=== PATIENT | female | born 1985 | race Caucasian/White ===

== ENCOUNTER → 2018-06-24 08:30 | Outpatient (CLI) | payer OTHER, SELFPAY ==
--- NOTE | 2018-06-24 | DI.US.S_ITS ---
PROCEDURE: US ABDOMEN COMPLETE INDICATIONS: ABDOMINAL PAIN TECHNIQUE: Real-time scanning was performed of the abdominal and retroperitoneal organs, with image documentation. COMPARISON: [facility], CT, ABDOMEN/PELVIS WITH CONTRAST, 08/17/2017, 15:21. [facility], CR, ABDOMEN ACUTE SERIES, 08/17/2017, 12:38. [facility], RG, US ABDOMEN LIMITED, 10/01/2016, 11:04. FINDINGS: Liver: Liver is normal in size and homogeneous in echotexture. Gallbladder: No gallstones identified. Normal gallbladder wall. No pericholecystic fluid. Negative sonographic Zamora sign. Biliary ducts: Intrahepatic bile ducts are non-dilated. Extrahepatic bile duct caliber measures 5.0 mm. Normal is 6-7 mm or less in diameter, or 10 mm or less post-cholecystectomy. Pancreas: Visualized portions of the pancreas are sonographically normal. Spleen: Spleen is normal in size and homogeneous in echotexture. Kidneys: Kidneys are normal in size and echotexture. Right kidney measures 9.8 cm long; left kidney measures 10 point cm long. No hydronephrosis or nephrolithiasis. No solid masses. Aorta: Visualized aorta is normal in caliber at less than 3 cm. Iliacs: Proximal common iliac arteries are normal in caliber at less than 2.5 cm. IVC: Intrahepatic inferior vena cava is patent. Miscellaneous: No free abdominal fluid. IMPRESSION: No source for abdominal pain identified. Dictated by: Fred HALL Interpreted: Nathan Suresh MD on 06/24/2018 at 10:19 Approved by: Nathan Suresh M.D. on 06/24/2018 at 10:45
== END ==
PROVIDERS: Family Provider Internal Medicine; PCP Internal Medicine; Visit Provider Physician Assistant Medical
DX: R10.9 Unspecified abdominal pain (principal)
CPT/HCPCS: 76700

== ENCOUNTER → 2018-06-30 13:11 | Outpatient (CLI) | payer OTHER, SELFPAY ==
[2018-06-30 14:42] LABS: Thyroid Stimulating Hormone 1.66 uIU/mL (0.47-4.68)
== END ==
PROVIDERS: PCP Internal Medicine; Visit Provider Allergy & Immunology
DX: E03.9 Hypothyroidism, unspecified (principal)
CPT/HCPCS: 36415; 84443

== ENCOUNTER 2018-07-08 00:53 | Emergency (ER) | payer OTHER, SELFPAY ==
[2018-07-08 01:20] VITALS: BP 136/87; PULSE 80; RESP 18; TEMP 37.3; O2SAT 98; BMI 23.0
--- NOTE | 2018-07-08 01:44 | DI.CT.S_ITS ---
PROCEDURE: CT ABDOMEN PELVIS W CON INDICATIONS: severe left lower quadrant pain TECHNIQUE: After the administration of intravenous contrast, 5 mm thick sections acquired from the diaphragm to the symphysis. 5 mm coronal and sagittal reformats were acquired. For radiation dose reduction, the following was used: automated exposure control, adjustment of mA and/or kV according to patient size. COMPARISON: Located Within [facility], CT, ABDOMEN/PELVIS WITH CONTRAST, 08/17/2017, 15:21. FINDINGS: Image quality: Excellent. ABDOMEN: Lung bases: Lung bases are clear. Heart size is normal. Solid organs: Liver is normal in size and enhancement. Probable hemangioma in the periphery of the posterior-superior subsegment of the right lobe liver is stable compared to the prior examination. Gallbladder is normal. Biliary system is non dilated. Pancreas enhances normally. Spleen is normal in size and enhancement. No adrenal nodules. Kidneys demonstrate normal size and enhancement, without hydronephrosis. Peritoneum and bowel: Bowel loops demonstrate normal wall thickness and caliber. The appendix is normal. No free fluid or air. Nodes and vessels: No retroperitoneal or mesenteric adenopathy by size criteria. Aorta and inferior vena cava are normal in size. Miscellaneous: No ventral hernias. PELVIS: Genitourinary: Bladder wall thickness is normal. Intrauterine device is properly positioned. Essure device in the right fallopian tube is stable. Previously identified right adnexal cyst has resolved. Miscellaneous: No inguinal hernias or adenopathy. Bones: No suspicious bony lesions. No vertebral body compression fractures. IMPRESSION: 1. No acute disease process. 2. No free free air. Trace free fluid in the pelvis which is within physiologic limits. 3. No dilated loops of bowel. Dictated by: Trinidad Garcia MD, PhD on 07/08/2018 at 7:07 Approved by: Trinidad Garcia MD, PhD on 07/08/2018 at 7:13
--- NOTE | 2018-07-08 01:59 | ED_ITS ---
HPI - Abdominal Pain General Chief Complaint: Abdominal Pain Stated Complaint: lower left abdominal pain, nausea, diarrhea Time Seen by Provider: 07/08/18 01:08 Source: patient and family Mode of arrival: ambulatory Limitations: no limitations History of Present Illness HPI narrative: 33F non smoker with extensive GI history presents with severe LLQ pain over the night. Patient has extensive GI history including gastroparesis and irritable bowel syndrome. Her symptoms began tonight became quite severe while taking a bowel movement, and she states palpation and motion also make it worse. She is nauseated but denies vomiting. She has had no fever or chills. She is not dizzy nor weak or lightheaded. She states this is drastically different than any of her IBS or ovarian pain. MD complaint: abdominal pain Onset (ago): hour(s) Pain Consistency: constant Location: LLQ Severity: severe Quality: cramping and stabbing Radiation: none Migration to: no migration Relieving factors: rest Exacerbating factors: movement Related Data Home Medications Medication Instructions Recorded Confirmed fluticasone-salmeterol [Advair 1 puff INH BID #14 dose 11/07/12 Diskus] [DOMPARADONE] 10 mg PO AC #0 12/27/15 amitriptyline 50 mg PO HS #0 tab 12/27/15 escitalopram oxalate [Lexapro] 20 mg PO QDAY #0 12/27/15 hyoscyamine sulfate [Levbid] 0.375 mg PO TIDAC #0 12/27/15 ibuprofen 200 mg PO PRN PRN #0 12/27/15 ranitidine HCl [Zantac] 150 mg PO TIDAC #0 12/27/15 spironolactone [Aldactone] 100 mg PO BID #0 12/27/15 topiramate [Topamax] 200 mg PO HS #0 12/27/15 zolpidem 5 mg PO QDAY #0 12/27/15 levonorgestrel [Mirena] 52 mg INTRAU #0 06/10/17 Previous Rx's Medication Instructions Recorded naproxen [Naprosyn] 500 mg PO BIDP PRN #20 tab 08/17/17 oxycodone 5 mg PO Q4-6H PRN #10 tab 07/08/18 Allergies Allergy/AdvReac Type Severity Reaction Status Date / Time No Known Allergies Allergy Uncoded 09/15/17 12:24 Review of Systems Constitutional Denies chills, Denies fever(s), Denies lethargy and Denies weakness Eyes Denies change in vision, Denies eye discharge, Denies irritation and Denies loss of vision ENT Ears, Nose, Mouth, and Throat: Denies change in voice, Denies neck pain and Denies sore throat Cardiovascular Denies chest pain, Denies irregular heart rhythm, Denies lightheadedness, Denies palpitations, Denies dyspnea, Denies dyspnea on exertion and Denies orthopnea Respiratory Denies cough, Denies dyspnea, Denies dyspnea on exertion and Denies wheezing Gastrointestinal Gastrointestinal: Reports abdominal pain, Denies change in bowel habits, Reports diarrhea, Denies nausea and Denies vomiting Genitourinary Denies hematuria, Denies flank pain, Denies urinary incontinence and Denies urinary urgency Musculoskeletal Denies neck pain Integumentary/Breasts Denies pruritus, Denies erythema, Denies rash and Denies wounds Neurologic Denies confusion, Denies loss of vision and Denies weakness Psychiatric Denies anxiety, Denies confusion, Denies depression, Denies homicidal ideation and Denies suicidal ideation Endocrine Denies palpitations Hematologic/Lymphatic Denies easy bruising Allergic/Immunologic Denies wheezing PFSH Social History Smoking Status: Never smoker Social History Smoking Status: Never smoker Exam Narrative Exam Narrative: GENERAL: T pleasant 33-year-old female with her father, obviously quite uncomfortable and in pain HEAD: Atraumatic. Normocephalic. No temporal or scalp tenderness. EYES: Pupils equal round and reactive. Extraocular motions intact. No scleral icterus. No injection or drainage. ENT: Nose without bleeding, purulent drainage or septal hematoma. Throat without erythema, tonsillar hypertrophy or exudate. Uvula midline. Airway patent. NECK: Trachea midline. No JVD or lymphadenopathy. Supple, nontender, no meningeal signs. CARDIOVASCULAR: Regular rate and rhythm without murmurs, gallops, or rubs. RESPIRATORY: Clear to auscultation. Breath sounds equal bilaterally. No wheezes , rales, or rhonchi. GASTROINTESTINAL: Abdomen soft, severe left lower quadrant tenderness, nondistended. No hepato-splenomegaly, or palpable masses. No guarding. EXTREMITIES: No clubbing, cyanosis, or edema. No joint tenderness, effusion, or edema noted. BACK: Nontender without deformity or crepitance. No flank tenderness. NEURO: AOx3. SKIN: No rash or erythema. Initial Vital Signs Initial Vital Signs: Vital Signs Temperature 99.1 F 07/08/18 01:20 Pulse Rate 80 07/08/18 01:20 Respiratory Rate 18 07/08/18 01:20 Blood Pressure 136/87 07/08/18 01:20 Pulse Oximetry 98 07/08/18 01:20 Course Orders Ordered: ED Orders 07/08/18 01:44 CT abdomen pelvis w con Stat 07/08/18 02:11 Complete Blood Count AUTO DIFF Stat Comprehensive Metabolic Panel Stat Lipase Stat 07/08/18 02:45 Urine Culture Stat Urine Microscopic Stat Oxycodone/Acetaminophen (Endocet 5/325 Prepack) 1 bottle MISC SEEINSTR ONE Stop: 07/08/18 03:59 Discontinued Medications Hydromorphone HCl (Dilaudid) 1 mg IV Q15M EMMANUEL Stop: 07/08/18 02:01 Last Admin: 07/08/18 02:00 Dose: 1 mg Sodium Chloride (Normal Saline 0.9%) 500 mls @ 1,000 mls/hr IV BOLUS ONE Stop: 07/08/18 02:12 Last Infusion: 07/08/18 03:02 Dose: 1,000 mls/hr Admin: 07/08/18 02:00 Dose: 1,000 mls/hr Ondansetron HCl (Zofran) 4 mg IV NOW ONE Stop: 07/08/18 01:44 Last Admin: 07/08/18 02:00 Dose: 4 mg Vital Signs - 8 hr 07/08/18 01:20 07/08/18 03:00 Temperature 99.1 F Pulse Rate 80 70 Respiratory Rate 18 Blood Pressure 136/87 Blood Pressure [Left Arm] 101/60 Pulse Oximetry 98 98 MDM - Abdominal Pain Medical Records Attestation: I reviewed the patient's medical records. Lab Data Attestation: I reviewed the patient's lab results. Result diagrams: 07/08/18 02:11 07/08/18 02:11 Lab Results 07/08/18 07/08/18 07/08/18 Range/Units 02:11 02:11 02:45 WBC 11.0 (4.5-11.0) X10^3/uL RBC 4.54 (4.0-5.2) X10^6/uL Hgb 14.3 (12.0-16.0) g/dL Hct 40.9 (36-46) % MCV 90.1 (80-100) fL MCH 31.4 (26-34) PG MCHC 34.8 (30-36) % RDW 12.5 (11.6-14.8) % Plt Count 257 (150-400) X10^3/uL Neut % (Auto) 76.0 H (50-75) % Lymph % (Auto) 15.0 L (25-40) % Lake % (Auto) 6.5 (3-14) % Eos % (Auto) 1.8 L (2-4) % Baso % (Auto) 0.7 (0-2) % Neut # (Auto) 8400 H (1146-8544) /uL Lymph # (Auto) 1700 (9582-5434) /uL [place] # (Auto) 700 (0-900) /uL Eos # (Auto) 200 (0-450) /uL Baso # (Auto) 100 (0-100) /uL Sodium 137 (137-145) mmol/L Potassium 4.1 (3.4-5.1) mmol/L Chloride 103 (98-107) mmol/L Carbon Dioxide 24 (22-32) mmol/L BUN 15 (7-17) mg/dL Creatinine 1.00 (0.52-1.04) mg/dL Estimated GFR > 60.0 (>60) mL/min BUN/Creatinine Ratio 15.0 (6-22) Glucose 98 (70-100) mg/dL Calcium 9.4 (8.4-10.2) mg/dL Total Bilirubin 0.5 (0.2-1.3) mg/dL AST 19 (14-36) IU/L ALT 24 (9-52) IU/L Alkaline Phosphatase 54 (38-126) U/L Total Protein 7.3 (6.3-8.2) g/dL Albumin 4.4 (3.5-5.0) g/dL Globulin 2.9 (1.7-4.1) g/dL Albumin/Globulin Ratio 1.5 (1.0-2.8) Lipase 102 (23-300) U/L Urine RBC None seen (0-5/HPF) Urine WBC 1-5/hpf (0-5/HPF) Ur Squamous Epith Cells 1-5 /hpf Urine Bacteria Few (2-10) H (None) Ur Culture Indicated? Specimen cultured Point of care testing: Urine Dip Bedside Urine Glucose Negative Bedside Urine Bilirubin - Negative Bedside Urine Ketone - Negative Urine Specific [place] 1.010 Bedside Urine Occult Blood - Negative Bedside Urine pH 6.5 Bedside Urine Protein - Negative Bedside Urine Urobilinogen - Negative Bedside Urine Nitrite - Negative Bedside Urine Leukocytes + [address] scan - abdomen: Radiologist's impression: No acute abnormality is identified MDM Narrative Medical decision making narrative: Multiple etiologies for patient's symptoms considered including: [Ovarian pain, kidney stone, bowel obstruction, diverticulitis, IBS, pelvic congestion, atypical endometriosis, ovarian problem , IUD urine perforation, versus other] Patient's symptoms improved or duration of stay with above-stated therapies. Findings and discharge diagnosis discussed with patient/family followed by verbalization of understanding Return precautions discussed with patient/family whom verbalize understanding. Discharge Plan Departure Patient Disposition: Home Clinical Impression: Pelvic pain Instructions: DI for Abdominal Pain-Adult Activity Restrictions/Additional Instructions: *You have been diagnosed with [ acute abdominal/pelvic pain] *What to do: *Take medications as directed *Follow up with your soft sugar operator head provider in 2-3 days, call for an appointment. Let them know you were seen in the Emergency Department and that we ask that you be seen in follow up *Return to ER if you should have any new, worsening or concerning symptoms Prescriptions: New oxycodone 5 mg tablet 5 mg PO Q4-6H PRN (Reason: pain) Qty: 10 RF: 0 No Action fluticasone-salmeterol [Advair Diskus] 250 MCG/50 MCG blister with device 1 puff INH BID Qty: 14 RF: 0 [DOMPARADONE] 10 mg PO AC Qty: 0 RF: 0 spironolactone [Aldactone] 100 MG tablet 100 mg PO BID Qty: 0 RF: 0 hyoscyamine sulfate [Levbid] 0.375 MG tablet extended release 12 hr 0.375 mg PO TIDAC Qty: 0 RF: 0 ranitidine HCl [Zantac] 150 MG tablet 150 mg PO TIDAC Qty: 0 RF: 0 escitalopram oxalate [Lexapro] 10 MG tablet 20 mg PO QDAY Qty: 0 RF: 0 ibuprofen 200 MG tablet 200 mg PO PRN PRNQty: 0 RF: 0 topiramate [Topamax] 200 MG tablet 200 mg PO HS Qty: 0 RF: 0 zolpidem 5 MG tablet 5 mg PO QDAY Qty: 0 RF: 0 amitriptyline 50 MG tablet 50 mg PO HS Qty: 0 RF: 0 levonorgestrel [Mirena] 1 EACH intrauterine device 52 mg INTRAU Qty: 0 RF: 0 naproxen [Naprosyn] 500 MG tablet 500 mg PO BIDP PRNQty: 20 RF: 0 Referrals: Minda Aldana MD [Physician] - aGston Bynum MD [Primary Care Provider] -
[2018-07-08] MEDS: ONDANSETRON 4 MG/2 ML INJ IV (02:00)
[2018-07-08] MEDS: SODIUM CHLORIDE 0.9% 500 ML 1000 ML IV (02:00)
[2018-07-08] MEDS: HYDROMORPHONE 1 MG INJ IV (02:00)
[2018-07-08 02:30] LABS: Add Manual Diff / Slide Review NO; Basophils Absolute Auto 100 /uL (0-100); Basophils Percent Auto 0.7 % (0-2); Eosinophils Absolute Auto 200 /uL (0-450); Eosinophils Percent Auto 1.8 % (2-4); Hematocrit 40.9 % (36-46); Hemoglobin 14.3 g/dL (12.0-16.0); Lymphocytes Absolute Auto 1700 /uL (1100-4500); Mean Corpuscular HGB Conc 34.8 % (30-36); Mean Corpuscular Hemoglobin 31.4 PG (26-34); Mean Corpuscular Volume 90.1 fL (80-100); Monocytes Absolute Auto 700 /uL (0-900); Monocytes Percent Auto 6.5 % (3-14); Neutrophils Absolute Auto 8400 /uL (1500-7000); Platelet Count 257 X10^3/uL (150-400); Red Blood Cell Count 4.54 X10^6/uL (4.0-5.2); Red Cell Distribution Width 12.5 % (11.6-14.8)
[2018-07-08 02:40] LABS: Alanine Aminotransferase 24 IU/L (9-52); Albumin 4.4 g/dL (3.5-5.0); Albumin Globulin Ratio 1.5 (1.0-2.8); Alkaline Phosphatase 54 U/L (38-126); Aspartate Aminotransferase 19 IU/L (14-36); Bilirubin Total 0.5 mg/dL (0.2-1.3); Blood Urea Nitrogen 15 mg/dL (7-17); Calcium 9.4 mg/dL (8.4-10.2); Carbon Dioxide 24 mmol/L (22-32); Chloride 103 mmol/L (98-107); Estimated Glomerular Filt Rate > 60.0 mL/min (>60); Globulin 2.9 g/dL (1.7-4.1); Glucose 98 mg/dL (70-100); HEMOLYSIS < 15 (0-50); Lipase 102 U/L (23-300); Potassium 4.1 mmol/L (3.4-5.1); Sodium 137 mmol/L (137-145); Total Protein 7.3 g/dL (6.3-8.2)
[2018-07-08 02:47] LABS: RBC Urine None Seen (0-5/HPF)
[2018-07-08 03:00] VITALS: BP 101/60; PULSE 70; O2SAT 98
[2018-07-08 03:07] LABS: Bacteria Urine Few (2-10); Culture Indicated Urine Specimen Cultured; Squamous Epithelial Cell Urine 1-5 /HPF; WBC Urine 1-5/HPF (0-5/HPF)
[2018-07-08] MEDS: OXYCODONE/APAP 5/325 PREPACK 1 BOTTLE MISC (03:58)
== END 2018-07-08 04:00 | disposition home or self-care (01) ==
PROVIDERS: Emergency Provider Emergency Medicine; Family Provider Internal Medicine; PCP Internal Medicine
DX: R10.2 Pelvic and perineal pain (principal)
CPT/HCPCS: 36591; 74177; 80053; 81003; 81015; 83690; 85025; 87086; 96361; 96374; 99283; 99285; J1170; J2405; Q9967

== ENCOUNTER → 2018-07-18 12:43 | Outpatient (CLI) | payer OTHER, SELFPAY ==
--- NOTE | 2018-07-18 | DI.US.S_ITS ---
PROCEDURE: US PELVIC COMPLETE INDICATIONS: PELVIC PAIN TECHNIQUE: Real-time scanning was performed of the pelvic organs, with image documentation. Additional endovaginal scanning was necessary due to incomplete visualization of the adnexal and endometrial structures by transabdominal scanning. COMPARISON: None. FINDINGS: Transabdominal scanning: Limited scanning through the kidneys shows no hydronephrosis. No pathologic free abdominal or pelvic fluid. Endovaginal scanning: Uterus: Uterus is normal in size at 4.0 x 4.4 x 7.9 cm, anteverted. The endometrium appears normal in thickness and has a centrally positioned IUD. Ovaries: The ovaries bilaterally are well visualized and contains several follicular cysts, with the right ovary measuring up to 3.2 cm and the left measuring up to 2.5 cm. IMPRESSION: Centrally positioned IUD appears normal, anteverted uterus, normal in size. Several follicular cysts are seen at the ovaries bilaterally, and there is no suspicion for ovarian torsion or inflammation. A definite source of current pelvic pain is not seen. Dictated by: Juan Jose Jang M.D. on 07/18/2018 at 16:44 Approved by: Juan Jose Jang M.D. on 07/18/2018 at 16:47
== END ==
PROVIDERS: Family Provider Internal Medicine; PCP Internal Medicine; Visit Provider Physician Assistant Medical
DX: R10.2 Pelvic and perineal pain (principal); N83.02 Follicular cyst of left ovary; N83.01 Follicular cyst of right ovary; Z97.5 Presence of (intrauterine) contraceptive device
CPT/HCPCS: 76830; 76856

== ENCOUNTER → 2018-11-08 12:02 | Outpatient (CLI) | payer OTHER, SELFPAY ==
[2018-11-08 13:21] LABS: HEMOLYSIS < 15 (0-50); Potassium 3.8 mmol/L (3.4-5.1)
== END ==
PROVIDERS: Visit Provider Physician Assistant
DX: L70.0 Acne vulgaris (principal)
CPT/HCPCS: 36415; 84132

== ENCOUNTER → 2020-02-08 16:53 | Outpatient (CLI) | payer OTHER, SELFPAY ==
[2020-02-08 18:17] LABS: Blood Urea Nitrogen 8 mg/dL (7-17); HEMOLYSIS < 15 (0-50); Potassium 4.2 mmol/L (3.4-5.1)
== END ==
PROVIDERS: Referring Provider Physician Assistant; Visit Provider Physician Assistant
DX: L70.0 Acne vulgaris (principal)
CPT/HCPCS: 36415; 84132; 84520